=== PATIENT | male | born 1950 | race Caucasian/White ===

== ENCOUNTER 2020-02-22 22:09 | Inpatient (IN) ==
[2020-02-22 22:19] VITALS: BMI 31.8
[2020-02-22 23:12] LABS: ABG BASE EXCESS 4.3 mmol/L (-2.0-2.0); ABG HCO3 26.2 mmol/L (22-26)
[2020-02-22 23:13] LABS: ABG ALLEN TEST POS
[2020-02-22 23:18] LABS: BASOPHILS % (AUTO) 0.1 % (0.2-1.0); EOSINOPHILS % (AUTO) 0.2 % (0.9-2.9); HEMATOCRIT 45.6 % (42.0-54.0); HEMOGLOBIN 15.4 g/dL (13.5-18.0); LYMPHOCYTES # (AUTO) 0.9 X10^3/uL (1.3-2.9); LYMPHOCYTES % (AUTO) 6.9 % (21.0-51.0); MEAN CORPUSCULAR HEMOGLOBIN 29.3 pg (27.0-34.0); MEAN CORPUSCULAR HGB CONC 33.7 g/dL (33.0-35.0); MEAN CORPUSCULAR VOLUME 86.9 fL (80.0-100.0); MEAN PLATELET VOLUME 8.6 fL (7.4-11.0); MONOCYTES # (AUTO) 1.5 x10^3/uL (0.3-0.8); MONOCYTES % (AUTO) 11.7 % (0.0-13.0); NEUTROPHILS # (AUTO) 10.2 x10^3/uL (2.2-4.8); NEUTROPHILS % (AUTO) 81.1 % (42.0-75.0); PLATELET COUNT 342 X10^3/uL (150.0-450.0); RED BLOOD COUNT 5.25 X10^6/uL (4.7-6.0); WHITE BLOOD COUNT 12.5 X10^3/uL (3.6-10.0)
[2020-02-22 23:26] LABS: ALBUMIN 2.7 g/dL (3.4-5.0); CALCIUM 8.9 mg/dL (8.5-10.1); CARBON DIOXIDE 26.2 mmol/L (21-32); COR CA(FOR HYPOALB) 9.9 mg/dL (8.5-10.1); CREATININE 1.64 mg/dL (0.70-1.30); TOTAL PROTEIN 7.6 g/dL (6.4-8.2)
--- NOTE | 2020-02-22 23:29 | RAD ---
HISTORYSOB, LOW [id number], 1 VIEWCOMPARISONNoneFINDINGSThe trachea is midline. The cardiac silhouette is borderline prominent.. Low lung volume with patchy bibasilar airspace opacities, concerning for infiltrate/pneumonia. Perihilar interstitial opacities could represent interstitial edema or infiltrates. No pneumothorax. Possible bilateral pleural effusions.. Moderate multilevel spondylosis.IMPRESSIONLow lung volume with mild bibasilar patchy airspace opacities, concerning for infiltrate/pneumonia. Follow-up is recommended.Perihilar interstitial edema versus infiltrates.Possible bilateral pleural effusions.Electronically signed by: Alem Verduzco (Feb 22, 2020 23:27:30)
--- NOTE | 2020-02-23 00:56 | DR.GENAD ---
HPI Time Seen Time Seen by Provider: 02/23/20 00:03 PCP Primary Care Physician: LEIGHA Complaint/Symptoms Chief Complaint:: STARTED HAVING COVID SYMPTOMS OF FEVER, FATIGUE, WEAKNESS AND O2 SATS DROPPING TO 87-88% AT REST. STATES HE HAS SOME SOB WITH EXERTION AND AMS SINCE BEING SICK. Self Treatment fo Chief Complaint: WAS SWABBED FOR COVID AT DR. AHUJA'S OFFICE THIS PAST MONDAY BUT HAVE NOT RECEIVED THE RESULTS BACK YET. Source History Provided: Patient and Significant Other Mode of Arrival Mode of Arrival: Ambulatory Timing Onset of Chief Complaint: 02/10/20 PMH PMH Past Medical History: Yes Past Medical History: Arthritis, Diabetes, Dyslipidemia, GERD, Gout, Hyper tension, Kidney Stones and Sleep Apnea Past Surgical History: Yes Past Surgical History Comment: CERVICAL FUSION Family History History of Family Medical Conditions: Yes Family Medical History: Diabetes Mellitus, Cancer, [place] and Hypertension Social History Does patient currently use any type of tobacco product: No Have you used tobacco products in the last 12 months: No Type of Tobacco Use: None Does any household member use tobacco: No Alcohol Use: None Do you use any recreational Drugs:: No Lives With: Spouse Lives Where: Home Infectious screening In the last 2 months have you had wt loss of >10#?: NO Have you had fever, night sweats or hemotysis?: No Have you traveled outside the country in the last 6 months?: No Isolation: Droplet PE Vital Signs Vitals: Temperature 98.8 F Pulse Rate 96 Respiratory Rate 20 Blood Pressure 136/69 O2 Sat by Pulse Oximetry 91 ROR Labs Reviewed Result Diagrams: 02/22/20 23:07 02/22/20 23:07 Laboratory: WBC 12.5 X10^3/uL (3.6-10.0) H 02/22/20 23:07 RBC 5.25 X10^6/uL (4.7-6.0) 02/22/20 23:07 Hgb 15.4 g/dL (13.5-18.0) 02/22/20 23:07 Hct 45.6 % (42.0-54.0) 02/22/20 23:07 MCV 86.9 fL (80.0-100.0) 02/22/20 23:07 MCH 29.3 pg (27.0-34.0) 02/22/20 23:07 MCHC 33.7 g/dL (33.0-35.0) 02/22/20 23:07 RDW 15.0 % (11.6-16.5) 02/22/20 23:07 Plt Count 342 X10^3/uL (150.0-450.0) 02/22/20 23:07 MPV 8.6 fL (7.4-11.0) 02/22/20 23:07 Neut % (Auto) 81.1 % (42.0-75.0) H 02/22/20 23:07 Lymph % (Auto) 6.9 % (21.0-51.0) L 02/22/20 23:07 [place] % (Auto) 11.7 % (0.0-13.0) 02/22/20 23:07 Eos % (Auto) 0.2 % (0.9-2.9) L 02/22/20 23:07 Baso % (Auto) 0.1 % (0.2-1.0) L 02/22/20 23:07 Neut # (Auto) 10.2 x10^3/uL (2.2-4.8) H 02/22/20 23:07 Lymph # (Auto) 0.9 X10^3/uL (1.3-2.9) L 02/22/20 23:07 [place] # (Auto) 1.5 x10^3/uL (0.3-0.8) H 02/22/20 23:07 Eos # (Auto) 0.0 x10^3/uL (0.0-0.2) 02/22/20 23:07 Baso # (Auto) 0.0 X10^3/uL (0.0-0.1) 02/22/20 23:07 Absolute Nucleated RBC 0.1 /100WBC 02/22/20 23:07 Sample Site Lr 02/22/20 23:05 ABG pH 7.550 (7.35-7.45) H 02/22/20 23:05 ABG pCO2 30.0 mmHg (35.0-45.0) L 02/22/20 23:05 ABG pO2 51.0 mmHg (80.0-100.0) L 02/22/20 23:05 ABG HCO3 26.2 mmol/L (22-26) H 02/22/20 23:05 ABG O2 Saturation 90.0 % (90-100) 02/22/20 23:05 ABG Base Excess 4.3 mmol/L (-2.0-2.0) H 02/22/20 23:05 Cristóbal Test Pos 02/22/20 23:05 A-a Gradient 61.0 mmHg 02/22/20 23:05 FiO2 21.0 02/22/20 23:05 Blood Gas Comments Jack well ae 02/22/20 23:05 Sodium 135 mmol/L (136-145) L 02/22/20 23:07 Corrected Sodium 137 mmol/L (136-145) 02/22/20 23:07 Potassium 3.4 mmol/L (3.5-5.1) L 02/22/20 23:07 Chloride 98 mmol/L (98-107) 02/22/20 23:07 Carbon Dioxide 26.2 mmol/L (21-32) 02/22/20 23:07 BUN 23 mg/dL (7-18) H 02/22/20 23:07 Creatinine 1.64 mg/dL (0.70-1.30) H 02/22/20 23:07 Est GFR (MDRD) Af Amer 54 (>60) L 02/22/20 23:07 Est GFR (MDRD) Non-Af 44 (>60) L 02/22/20 23:07 Glucose 185 mg/dL (65-99) H 02/22/20 23:07 Calcium 8.9 mg/dL (8.5-10.1) 02/22/20 23:07 Corrected Calcium 9.9 mg/dL (8.5-10.1) 02/22/20 23:07 Ferritin 1306 ng/mL (26-388) H 02/22/20 23:07 Total Bilirubin 1.00 mg/dL (0.2-1.0) 02/22/20 23:07 AST 65 Units/L (15-37) H 02/22/20 23:07 ALT 80 Units/L (12-78) H 02/22/20 23:07 Alkaline Phosphatase 65 Units/L (46-116) 02/22/20 23:07 C-Reactive Protein 122.90 mg/L (0-3.0) H 02/22/20 23:07 Total Protein 7.6 g/dL (6.4-8.2) 02/22/20 23:07 Albumin 2.7 g/dL (3.4-5.0) L 02/22/20 23:07 Globulin 4.9 g/dL (2.5-4.5) H 02/22/20 23:07 Albumin/Globulin Ratio 0.6 Ratio (1.1-2.1) L 02/22/20 23:07 SARS CoV-2 RNA Rapid ROSALIA Positive (NEGATIVE) A 02/23/20 01:14 Opioid Opioid Risk Tool Total: 0 Total Score Risk Category: Low Risk Copyright: Storm COKER predicting aberrant behaviors Diagnosis Discharge Problem: Hypoxia, Acute respiratory alkalosis, Pneumonia due to 2019 novel coronavirus Instructions Forms: Precautions for COVID19 Patient Portal Social Distancing
[2020-02-23] MEDS ORDERED: NS 1000 ML 1,000 ML ONE ×2 (01:52→14:05)
--- NOTE | 2020-02-23 01:59 | DR.GENAD ---
HPI Time Seen Time Seen by Provider: 02/23/20 00:03 PCP Primary Care Physician: LEIGHA HPI Comment HPI Comment: According to pt he did have shortness of breath cough and fatigue. has seen his FP last week. did have covid test result of which are pending ,has noticed shortness of breath has worsened .hence the visit Complaint/Symptoms Chief Complaint Doctors Comments: shortness of breath Chief Complaint:: STARTED HAVING COVID SYMPTOMS OF FEVER, FATIGUE, WEAKNESS AND O2 SATS DROPPING TO 87-88% AT REST. STATES HE HAS SOME SOB WITH EXERTION AND AMS SINCE BEING SICK. Self Treatment fo Chief Complaint: WAS SWABBED FOR COVID AT DR. AHUJA'S OFFICE THIS PAST MONDAY BUT HAVE NOT RECEIVED THE RESULTS BACK YET. COVID-19 Coronavirus risk:travel/contact w/high risk person: Yes Has patient experienced Coronavirus symptoms: Yes Coronavirus symptoms experienced: Fever, Coughing and Shortness of Breath Nurses notes reviewed Nurses Notes Review: Yes Source History Provided: Patient and Significant Other Mode of Arrival Mode of Arrival: Ambulatory Timing Onset of Chief Complaint: 02/10/20 Came on: Gradually Duration Duration: Constant How lon Duration: Days Severity Severity: Moderate Modifying Factors Worsens:: on exertion PMH PMH Past Medical History: Yes Past Medical History: Arthritis, Diabetes, Dyslipidemia, GERD, Gout, Hypertension, Kidney Stones and Sleep Apnea Past Surgical History: Yes Past Surgical History Comment: CERVICAL FUSION Family History History of Family Medical Conditions: Yes Family Medical History: Diabetes Mellitus, Cancer, [place] and Hypertension Social History Does patient currently use any type of tobacco product: No Have you used tobacco products in the last 12 months: No Type of Tobacco Use: None Does any household member use tobacco: No Alcohol Use: None Do you use any recreational Drugs:: No Lives With: Spouse Lives Where: Home Infectious screening In the last 2 months have you had wt loss of >10#?: NO Have you had fever, night sweats or hemotysis?: No Have you traveled outside the country in the last 6 months?: No Isolation: Droplet ROS Review of Systems Constitutional: Chills, Fever, Malaise and Fatigue Eyes: No Symptoms Reported ENTM: No Symptoms Reported Respiratoy: Dry Cough and Short of Breath Cardiovascular: No Symptoms Reported Gastrointestinal/Abdominal: No Symptoms Reported Genitourinary: No Symptoms Reported Neurological: No Symptoms Reported and Weakness Musculoskeletal: No Symptoms Reported Integumentary: No Symptoms Reported Hematologic/Lymphatic: No Symptoms Reported Endocrine: No Symptoms Reported Psychiatric: No Symptoms Reported PE Vital Signs Vitals: Temperature 98.8 F Pulse Rate 96 Respiratory Rate 20 Blood Pressure 136/69 O2 Sat by Pulse Oximetry 91 General Limitations: No Limitations General Appearance: Alert and Anxious Head Head Exam: Normal Inspection, Atraumatic and Normocephalic Eyes Eye exam: Normal Appearance, PERRL and EOMI ENT ENT Exam: Mucous Membranes Dry Neck Neck Exam: Normal Inspection and Full ROM Respiratory Respiratory Exam: Bilateral: Crackles Cardiovascular Cardiovascular Exam: Normal Rhythm, Normal Heart Sounds, +S1 and +S2 Abdominal Exam Abdominal Exam: Normal Inspection, Normal Bowel Sounds and Soft Extremities Extremities Exam: Full ROM Neurologic Neurological Exam: Alert and Oriented X3 Skin Skin Exam: Warm MDM Additional Information Additional Information Obtained From: Old Records Differential Diagnosis Differential Diagnosis: viral syndrome,shortness of breath,hypoxia COURSE Treatment Treatment: oxygen ROR Labs Reviewed Laboratory Results Reviewed?: Yes Result Diagrams: 02/22/20 23:07 02/22/20 23:07 Laboratory: WBC 12.5 X10^3/uL (3.6-10.0) H 02/22/20 23:07 RBC 5.25 X10^6/uL (4.7-6.0) 02/22/20 23:07 Hgb 15.4 g/dL (13.5-18.0) 02/22/20 23:07 Hct 45.6 % (42.0-54.0) 02/22/20 23:07 MCV 86.9 fL (80.0-100.0) 02/22/20 23:07 MCH 29.3 pg (27.0-34.0) 02/22/20 23:07 MCHC 33.7 g/dL (33.0-35.0) 02/22/20 23:07 RDW 15.0 % (11.6-16.5) 02/22/20 23:07 Plt Count 342 X10^3/uL (150.0-450.0) 02/22/20 23:07 MPV 8.6 fL (7.4-11.0) 02/22/20 23:07 Neut % (Auto) 81.1 % (42.0-75.0) H 02/22/20 23:07 Lymph % (Auto) 6.9 % (21.0-51.0) L 02/22/20 23:07 [place] % (Auto) 11.7 % (0.0-13.0) 02/22/20 23:07 Eos % (Auto) 0.2 % (0.9-2.9) L 02/22/20 23:07 Baso % (Auto) 0.1 % (0.2-1.0) L 02/22/20 23:07 Neut # (Auto) 10.2 x10^3/uL (2.2-4.8) H 02/22/20 23:07 Lymph # (Auto) 0.9 X10^3/uL (1.3-2.9) L 02/22/20 23:07 [place] # (Auto) 1.5 x10^3/uL (0.3-0.8) H 02/22/20 23:07 Eos # (Auto) 0.0 x10^3/uL (0.0-0.2) 02/22/20 23:07 Baso # (Auto) 0.0 X10^3/uL (0.0-0.1) 02/22/20 23:07 Absolute Nucleated RBC 0.1 /100WBC 02/22/20 23:07 Sample Site Lr 02/22/20 23:05 ABG pH 7.550 (7.35-7.45) H 02/22/20 23:05 ABG pCO2 30.0 mmHg (35.0-45.0) L 02/22/20 23:05 ABG pO2 51.0 mmHg (80.0-100.0) L 02/22/20 23:05 ABG HCO3 26.2 mmol/L (22-26) H 02/22/20 23:05 ABG O2 Saturation 90.0 % (90-100) 02/22/20 23:05 ABG Base Excess 4.3 mmol/L (-2.0-2.0) H 02/22/20 23:05 Cristóbal Test Pos 02/22/20 23:05 A-a Gradient 61.0 mmHg 02/22/20 23:05 FiO2 21.0 02/22/20 23:05 Blood Gas Comments Jack well ae 02/22/20 23:05 Sodium 135 mmol/L (136-145) L 02/22/20 23:07 Corrected Sodium 137 mmol/L (136-145) 02/22/20 23:07 Potassium 3.4 mmol/L (3.5-5.1) L 02/22/20 23:07 Chloride 98 mmol/L (98-107) 02/22/20 23:07 Carbon Dioxide 26.2 mmol/L (21-32) 02/22/20 23:07 BUN 23 mg/dL (7-18) H 02/22/20 23:07 Creatinine 1.64 mg/dL (0.70-1.30) H 02/22/20 23:07 Est GFR (MDRD) Af Amer 54 (>60) L 02/22/20 23:07 Est GFR (MDRD) Non-Af 44 (>60) L 02/22/20 23:07 Glucose 185 mg/dL (65-99) H 02/22/20 23:07 Calcium 8.9 mg/dL (8.5-10.1) 02/22/20 23:07 Corrected Calcium 9.9 mg/dL (8.5-10.1) 02/22/20 23:07 Ferritin 1306 ng/mL (26-388) H 02/22/20 23:07 Total Bilirubin 1.00 mg/dL (0.2-1.0) 02/22/20 23:07 AST 65 Units/L (15-37) H 02/22/20 23:07 ALT 80 Units/L (12-78) H 02/22/20 23:07 Alkaline Phosphatase 65 Units/L (46-116) 02/22/20 23:07 C-Reactive Protein 122.90 mg/L (0-3.0) H 02/22/20 23:07 Total Protein 7.6 g/dL (6.4-8.2) 02/22/20 23:07 Albumin 2.7 g/dL (3.4-5.0) L 02/22/20 23:07 Globulin 4.9 g/dL (2.5-4.5) H 02/22/20 23:07 Albumin/Globulin Ratio 0.6 Ratio (1.1-2.1) L 02/22/20 23:07 SARS CoV-2 RNA Rapid ROSALIA Positive (NEGATIVE) A 02/23/20 01:14 XRAY XRAY Interpreted by: Radiologist Opioid Opioid Risk Tool Total: 0 Total Score Risk Category: Low Risk Copyright: Storm COKER predicting aberrant behaviors Diagnosis Discharge Problem: Hypoxia, Acute respiratory alkalosis, Pneumonia due to 2019 novel coronavirus
[2020-02-23] MEDS ORDERED: NS 1000 ML 1,000 ML IV SCH (03:00)
[2020-02-23] MEDS ORDERED: REMDESIVIR 200 MG in NS 250 ML IV 250 ML IV ONE (03:07)
[2020-02-23] MEDS: DECADRON TAB PO SCH (03:49)
[2020-02-23] MEDS ORDERED: NS 100 ML IV 100 ML IV ONE ×3 (04:19→14:08)
[2020-02-23] MEDS: ASCORBIC ACID INJ MULTI-DOSE VIAL 1,500 MG in NS 100 ML IV 100 ML IV SCH ×4 (04:38→21:00)
[2020-02-23] MEDS ORDERED: REMDESIVIR IV ONE (05:21)
[2020-02-23] MEDS ORDERED: NS 250 ML IV 250 ML IV ONE (05:21)
[2020-02-23] MEDS: NS 1000 ML 1,000 ML IV SCH ×2 (06:09→14:12)
[2020-02-23 06:19] LABS: BASOPHILS % (AUTO) 0.4 % (0.2-1.0); HEMATOCRIT 42.6 % (42.0-54.0); HEMOGLOBIN 14.7 g/dL (13.5-18.0); LYMPHOCYTES # (AUTO) 1.1 X10^3/uL (1.3-2.9); LYMPHOCYTES % (AUTO) 10.6 % (21.0-51.0); MEAN CORPUSCULAR HEMOGLOBIN 29.9 pg (27.0-34.0); MEAN CORPUSCULAR HGB CONC 34.4 g/dL (33.0-35.0); MEAN CORPUSCULAR VOLUME 86.8 fL (80.0-100.0); MEAN PLATELET VOLUME 8.8 fL (7.4-11.0); MONOCYTES # (AUTO) 1.1 x10^3/uL (0.3-0.8); MONOCYTES % (AUTO) 10.7 % (0.0-13.0); NEUTROPHILS # (AUTO) 7.8 x10^3/uL (2.2-4.8); NEUTROPHILS % (AUTO) 78.3 % (42.0-75.0); PLATELET COUNT 325 X10^3/uL (150.0-450.0); RED BLOOD COUNT 4.91 X10^6/uL (4.7-6.0); RED CELL DISTRIBUTION WIDTH 14.9 % (11.6-16.5)
[2020-02-23 06:29] LABS: ALANINE AMINOTRANSFERASE 75 Units/L (12-78); ALBUMIN 2.5 g/dL (3.4-5.0); ALKALINE PHOSPHATASE 60 Units/L (46-116); ASPARTATE AMINO TRANSFERASE 60 Units/L (15-37); BLOOD UREA NITROGEN 22 mg/dL (7-18); CALCIUM 8.6 mg/dL (8.5-10.1); CARBON DIOXIDE 25.6 mmol/L (21-32); CHLORIDE 102 mmol/L (98-107); COR CA(FOR HYPOALB) 9.8 mg/dL (8.5-10.1); COR NA(FOR HYPERGLY) 139 mmol/L (136-145); CREATININE 1.44 mg/dL (0.70-1.30); SODIUM 138 mmol/L (136-145); TOTAL PROTEIN 7.2 g/dL (6.4-8.2); eGFR NON BLACK RACES 51 (>60)
[2020-02-23] MEDS ORDERED: PULMICORT NEB TX 0.5 MG NEB ONE (07:43)
[2020-02-23] MEDS ORDERED: PROVENTIL NEB TX 0.083% 2.5MG/ 3ML ONE (07:43)
[2020-02-23] MEDS: PULMICORT NEB TX 0.5 MG NEB SCH ×2 (08:30→20:55)
[2020-02-23] MEDS: PROVENTIL NEB TX 0.083% 2.5MG/ 3ML NEB SCH ×2 (08:30→20:55)
[2020-02-23] MEDS ORDERED: PEPCID TAB 40 MG ONE (08:43)
[2020-02-23] MEDS ORDERED: LOVENOX INJ 30 MG SYR SC ONE (08:43)
[2020-02-23] MEDS ORDERED: THIAMINE HCL INJ ONE (08:43)
[2020-02-23] MEDS ORDERED: ZINC SULFATE ONE (08:43)
[2020-02-23] MEDS ORDERED: ASCORBIC ACID INJ MULTI-DOSE VIAL IV ONE ×2 (08:44→14:06)
[2020-02-23] MEDS: ZINC SULFATE PO SCH ×2 (08:50→21:00)
[2020-02-23] MEDS: THIAMINE HCL INJ IVP SCH ×2 (08:50→21:00)
[2020-02-23] MEDS: VITAMIN A PO SCH (08:51)
[2020-02-23] MEDS: VITAMIN D3 125 mcg (5,000 UNITS) PO SCH (08:52)
[2020-02-23] MEDS ORDERED: PEPCID TAB 40 MG PO SCH (09:00)
[2020-02-23] MEDS: LOVENOX INJ 30 MG SYR SC SCH ×2 (09:38→21:00)
[2020-02-23] MEDS ORDERED: ZITHROMAX TAB 250 MG PO ONE ×2 (09:40→10:03)
[2020-02-23] MEDS ORDERED: K-DUR TAB 20 MEQ PO ONE (10:03)
[2020-02-23] MEDS: K-DUR TAB 20 MEQ PO SCH ×3 (10:08→21:00)
[2020-02-23] MEDS: ZITHROMAX TAB 250 MG PO SCH (10:09)
--- NOTE | 2020-02-23 12:21 | DR.H&P ---
H&P History & Physical for Day of: H&P Date: 02/23/20 Chief Complaint Chief Complaint: weakness, worsening dyspnea Allergies Allergies Allergy/AdvReac Type Severity Reaction Status Date / Time No Known Drug Allergies Allergy Verified 02/22/20 22:19 History of Present Illness History of Present Illness: Mr. Naqvi is a 69y/o male with a PMH of HTN, HLD and DM presented with worsening dyspnea, cough and weakness. He states he has been sick for the past week. He got tested for covid at his PCP's office on but did not get the results back yet. He reports increased shortness of breath and cough. He also started having diarrhea last night. ED work-up COVID-19 positive CXR: mild bibasilar patchy infiltrates, bilateral effusions noted ABG 7.55/30/51/26 sats 90% on RA Labs: WBC 10 Hgb 14.7 Na: 139 K: 3.3 Cr: 1.44 down from 1.64 Patient is currently on 3L NC, sats above 90%. Plan: Continue to monitor resp status closely, Wean O2 as needed to keep sats > 92% . Continue decadron and Remdesivir. Will add azithromycin. Continue lovenox. Aggressive pulmonary toilet with bronchodilators and IS. Continue vitamin support. Change hydration to NS at 50cc/hr. Replace potassium. Monitor AM labs, imaging. Resume Home medications. Hold nephrotoxic medication. Time spent for clinical assessment, physical examination, reviewing labs/imaging , medical decision making and documentation greater than 45 mins. Past Medical History Past Medical History: Arthritis, Diabetes, Dyslipidemia, GERD, Gout, Hypertension, Kidney Stones and Sleep Apnea Family History Family Medical History: Diabetes Mellitus, Cancer, [place] and Hypertension Social History Does patient currently use any type of tobacco product: No Have you used tobacco products in the last 12 months: No Type of Tobacco Use: None Does any household member use tobacco: No Alcohol Use: None Drug Use: None Medications Home Medications: No Known Drug Allergies Allergy (Verified 02/22/20 22:19) Labs Result Diagrams: 02/23/20 05:53 02/23/20 05:53 Labs: Laboratory WBC 10.0 X10^3/uL (3.6-10.0) 02/23/20 05:53 RBC 4.91 X10^6/uL (4.7-6.0) 02/23/20 05:53 Hgb 14.7 g/dL (13.5-18.0) 02/23/20 05:53 Hct 42.6 % (42.0-54.0) 02/23/20 05:53 MCV 86.8 fL (80.0-100.0) 02/23/20 05:53 MCH 29.9 pg (27.0-34.0) 02/23/20 05:53 MCHC 34.4 g/dL (33.0-35.0) 02/23/20 05:53 RDW 14.9 % (11.6-16.5) 02/23/20 05:53 Plt Count 325 X10^3/uL (150.0-450.0) 02/23/20 05:53 MPV 8.8 fL (7.4-11.0) 02/23/20 05:53 Neut % (Auto) 78.3 % (42.0-75.0) H 02/23/20 05:53 Lymph % (Auto) 10.6 % (21.0-51.0) L 02/23/20 05:53 [place] % (Auto) 10.7 % (0.0-13.0) 02/23/20 05:53 Eos % (Auto) 0.0 % (0.9-2.9) L 02/23/20 05:53 Baso % (Auto) 0.4 % (0.2-1.0) 02/23/20 05:53 Neut # (Auto) 7.8 x10^3/uL (2.2-4.8) H 02/23/20 05:53 Lymph # (Auto) 1.1 X10^3/uL (1.3-2.9) L 02/23/20 05:53 [place] # (Auto) 1.1 x10^3/uL (0.3-0.8) H 02/23/20 05:53 Eos # (Auto) 0.0 x10^3/uL (0.0-0.2) 02/23/20 05:53 Baso # (Auto) 0.0 X10^3/uL (0.0-0.1) 02/23/20 05:53 Absolute Nucleated RBC 0.5 /100WBC 02/23/20 05:53 Sample Site Lr 02/22/20 23:05 ABG pH 7.550 (7.35-7.45) H 02/22/20 23:05 ABG pCO2 30.0 mmHg (35.0-45.0) L 02/22/20 23:05 ABG pO2 51.0 mmHg (80.0-100.0) L 02/22/20 23:05 ABG HCO3 26.2 mmol/L (22-26) H 02/22/20 23:05 ABG O2 Saturation 90.0 % (90-100) 02/22/20 23:05 ABG Base Excess 4.3 mmol/L (-2.0-2.0) H 02/22/20 23:05 Cristóbal Test Pos 02/22/20 23:05 A-a Gradient 61.0 mmHg 02/22/20 23:05 FiO2 21.0 02/22/20 23:05 Blood Gas Comments Jack well ae 02/22/20 23:05 Sodium 138 mmol/L (136-145) 02/23/20 05:53 Corrected Sodium 139 mmol/L (136-145) 02/23/20 05:53 Potassium 3.3 mmol/L (3.5-5.1) L 02/23/20 05:53 Chloride 102 mmol/L (98-107) 02/23/20 05:53 Carbon Dioxide 25.6 mmol/L (21-32) 02/23/20 05:53 BUN 22 mg/dL (7-18) H 02/23/20 05:53 Creatinine 1.44 mg/dL (0.70-1.30) H 02/23/20 05:53 Est GFR (MDRD) Af Amer > 60 (>60) 02/23/20 05:53 Est GFR (MDRD) Non-Af 51 (>60) L 02/23/20 05:53 Glucose 145 mg/dL (65-99) H 02/23/20 05:53 POC Glucose (mg/dL) 138 mg/dL (65-99) H 02/23/20 05:53 Calcium 8.6 mg/dL (8.5-10.1) 02/23/20 05:53 Corrected Calcium 9.8 mg/dL (8.5-10.1) 02/23/20 05:53 Magnesium 2.0 mg/dL (1.7-2.9) 02/23/20 05:53 Ferritin 1306 ng/mL (26-388) H 02/22/20 23:07 Total Bilirubin 0.70 mg/dL (0.2-1.0) 02/23/20 05:53 AST 60 Units/L (15-37) H 02/23/20 05:53 ALT 75 Units/L (12-78) 02/23/20 05:53 Alkaline Phosphatase 60 Units/L (46-116) 02/23/20 05:53 C-Reactive Protein 122.90 mg/L (0-3.0) H 02/22/20 23:07 Total Protein 7.2 g/dL (6.4-8.2) 02/23/20 05:53 Albumin 2.5 g/dL (3.4-5.0) L 02/23/20 05:53 Globulin 4.7 g/dL (2.5-4.5) H 02/23/20 05:53 Albumin/Globulin Ratio 0.5 Ratio (1.1-2.1) L 02/23/20 05:53 SARS CoV-2 RNA Rapid ROSALIA Positive (NEGATIVE) A 02/23/20 01:14 Review of Systems Constitutional: Fever, Weakness and Malaise Eyes: No Symptoms Reported ENT: No Symptoms Reported Respiratory: Cough, Shortness of Breath and SOB with Excertion Cardiovascular: No Symptoms Reported Gastrointestinal: Diarrhea Genitourinary: No Symptoms Reported Musculoskeletal: Back Pain Skin: No Symptoms Reported Neurological: No Symptoms Reported Physical Exam Vital Signs: Temperature 97.9 F Pulse Rate [Bilateral Radial] 77 Pulse Rate 54 Respiratory Rate 22 Blood Pressure [Right Arm] 143/71 Blood Pressure 136/69 O2 Sat by Pulse Oximetry 97 Oriented: Normal Eyes: Normal Ear: Normal Throat: Normal Respiratory: Diminished Throughout Cardiovascular: Normal Auscultation: Bowel Sounds: Normal Palpation: Normal Tenderness: Normal Skin: Decreased Turgur Musculoskeletal: Back:Lumbar and Back:Paraspinous Psychiatric: Anxiety Mood Description: Anxious Affect: Anxious Speech Pattern: Clear and Appropriate Assessment/Plan (1) Pneumonia due to 2019 novel coronavirus: Status: Acute (2) Acute respiratory failure with hypoxia: Status: Acute (3) Hypokalemia: Status: Acute (4) Diabetes: Qualifiers: Diabetes mellitus complication status: without complication Diabetes mellitus long term care social worker insulin use: without long term care social worker use Diabetes mellitus type: type 2 Qualified Code(s): E11.9 - Type 2 diabetes mellitus without comp lications Status: Acute (5) HTN (hypertension): Qualifiers: Hypertension type: essential hypertension Qualified Code(s): I10 - Essential (primary) hypertension Status: Acute (6) STELLA (acute kidney injury): Status: Acute (7) GERD (gastroesophageal reflux disease): Qualifiers: Esophagitis presence: without esophagitis Qualified Code(s): K21.9 - G madhavi-esophageal reflux disease without esophagitis Status: Acute (8) HLD (hyperlipidemia): Qualifiers: Hyperlipidemia type: unspecified Qualified Code(s): E78.5 - Hyperlipidemia, unspecified Status: Acute Review H&P Reviewed: Yes Patient was examined?: Yes
[2020-02-23] MEDS ORDERED: ULTRAM PO PRN (12:29)
[2020-02-23] MEDS ORDERED: ASPIRIN 81 MG CHEWTAB ONE (13:37)
[2020-02-23] MEDS ORDERED: LIPITOR TAB 80 MG ONE (13:37)
[2020-02-23] MEDS: ASPIRIN 81 MG CHEWTAB PO SCH (13:38)
[2020-02-23] MEDS: LIPITOR TAB 20 MG PO SCH ×2 (13:38→13:53)
[2020-02-23] MEDS ORDERED: ULTRAM ONE (14:17)
[2020-02-23] MEDS ORDERED: HumuLIN R ONE (17:26)
[2020-02-23] MEDS: HumuLIN R SC PRN ×2 (17:39→21:00)
[2020-02-24] MEDS: ASCORBIC ACID INJ MULTI-DOSE VIAL 1,500 MG in NS 100 ML IV 100 ML IV SCH ×4 (03:55→22:00)
[2020-02-24] MEDS: NS 1000 ML 1,000 ML IV SCH (04:37)
[2020-02-24 07:05] LABS: BASOPHILS % (AUTO) 0.5 % (0.2-1.0); EOSINOPHILS % (AUTO) 0.5 % (0.9-2.9); HEMATOCRIT 40.8 % (42.0-54.0); HEMOGLOBIN 13.7 g/dL (13.5-18.0); LYMPHOCYTES # (AUTO) 1.6 X10^3/uL (1.3-2.9); MEAN CORPUSCULAR HEMOGLOBIN 29.7 pg (27.0-34.0); MEAN CORPUSCULAR HGB CONC 33.7 g/dL (33.0-35.0); MEAN CORPUSCULAR VOLUME 88.3 fL (80.0-100.0); MONOCYTES # (AUTO) 0.9 x10^3/uL (0.3-0.8); MONOCYTES % (AUTO) 11.7 % (0.0-13.0); NEUTROPHILS # (AUTO) 5.1 x10^3/uL (2.2-4.8); NEUTROPHILS % (AUTO) 66.3 % (42.0-75.0); PLATELET COUNT 308 X10^3/uL (150.0-450.0); RED BLOOD COUNT 4.62 X10^6/uL (4.7-6.0); WHITE BLOOD COUNT 7.6 X10^3/uL (3.6-10.0)
[2020-02-24 07:27] LABS: ALANINE AMINOTRANSFERASE 133 Units/L (12-78); ALBUMIN 2.2 g/dL (3.4-5.0); ALKALINE PHOSPHATASE 55 Units/L (46-116); ASPARTATE AMINO TRANSFERASE 82 Units/L (15-37); BLOOD UREA NITROGEN 23 mg/dL (7-18); CALCIUM 8.5 mg/dL (8.5-10.1); CARBON DIOXIDE 23.5 mmol/L (21-32); CHLORIDE 109 mmol/L (98-107); COR CA(FOR HYPOALB) 9.9 mg/dL (8.5-10.1); COR NA(FOR HYPERGLY) 143 mmol/L (136-145); CREATININE 1.27 mg/dL (0.70-1.30); SODIUM 143 mmol/L (136-145); TOTAL PROTEIN 6.3 g/dL (6.4-8.2); eGFR NON BLACK RACES 59 (>60)
[2020-02-24] MEDS: VITAMIN D3 125 mcg (5,000 UNITS) PO SCH (10:00)
[2020-02-24] MEDS: THIAMINE HCL INJ IVP SCH ×2 (10:00→22:21)
[2020-02-24] MEDS: REMDESIVIR 100 MG in NS 250 ML IV 250 ML IV SCH (10:00)
[2020-02-24] MEDS: DECADRON TAB PO SCH (10:00)
[2020-02-24] MEDS: PROTONIX TAB 40 MG PO SCH (10:00)
[2020-02-24] MEDS: ZINC SULFATE PO SCH ×2 (10:00→22:00)
[2020-02-24] MEDS: ZITHROMAX TAB 250 MG PO SCH (10:00)
[2020-02-24] MEDS: VITAMIN A PO SCH (10:00)
[2020-02-24] MEDS: LIPITOR TAB 20 MG PO SCH (10:00)
[2020-02-24] MEDS: ASPIRIN 81 MG CHEWTAB PO SCH (10:00)
[2020-02-24] MEDS: K-DUR TAB 20 MEQ PO SCH ×2 (10:15→22:18)
[2020-02-24] MEDS: LOVENOX INJ 30 MG SYR SC SCH ×2 (10:16→22:19)
--- NOTE | 2020-02-24 10:24 | PCM.PROG ---
Progress Note Progress Note for Day of Date of Exam: 02/24/20 Subjective Subjective: Patient seen at bedside, no overnight events noted. He states he feels better this morning. He has been coughing up mucus. He is currently on 2- 3L O2 via NC. Denies fever or chills. Denies GI Sx. Labs: WBC 7.6 BUN/Cr: 23/1.27 Glu 117 Plan: continue to wean O2 as tolerated to keep sats > 92%. Aggressive pulmonary toilet with IS and bronchodilators. Continue current treatment with antibiotics, decadron and Remdesivir. Continue vitamin support. Continue home medications. Monitor AM labs, ABG and imaging. Past Medical Family Social History Past Med/Fam/Surg Hx: No changes since H&P Allergies: Allergies No Known Drug Allergies Allergy (Verified 02/22/20 22:19) Review of Systems ROS: No change since H&P Vital Signs and I&O's Vital Signs: Temperature 97.5 F Pulse Rate [Bilateral Radial] 70 Pulse Rate 62 Respiratory Rate 20 Blood Pressure [Right Arm] 124/82 Blood Pressure 136/69 O2 Sat by Pulse Oximetry 98 Intake and Output: Intake & Output 02/21/20 02/22/20 02/23/20 02/24/20 23:59 23:59 23:59 23:59 Intake Total 3328 / 3328 628 / 628 Output Total 240 / 240 250 / 250 Balance 3088 / 3088 378 / 378 Physical Exam Oriented: Normal Eyes: Normal Ear: Normal Throat: Normal Respiratory: Generalized, Diminished and Rhonchi Cardiovascular: Normal Auscultation: Bowel Sounds: Normal Tenderness: Normal Skin: Decreased Turgur Musculoskeletal: Back:Lumbar and Back:Paraspinous Psychiatric: Normal Mood Description: Calm Affect: Normal Speech Pattern: Clear and Appropriate Laboratory and Diagnostics Result Diagrams: 02/24/20 05:33 02/24/20 05:33 Labs: Laboratory WBC 7.6 X10^3/uL (3.6-10.0) 02/24/20 05:33 RBC 4.62 X10^6/uL (4.7-6.0) L 02/24/20 05:33 Hgb 13.7 g/dL (13.5-18.0) 02/24/20 05:33 Hct 40.8 % (42.0-54.0) L 02/24/20 05:33 MCV 88.3 fL (80.0-100.0) 02/24/20 05:33 MCH 29.7 pg (27.0-34.0) 02/24/20 05:33 MCHC 33.7 g/dL (33.0-35.0) 02/24/20 05:33 RDW 15.0 % (11.6-16.5) 02/24/20 05:33 Plt Count 308 X10^3/uL (150.0-450.0) 02/24/20 05:33 MPV 9.0 fL (7.4-11.0) 02/24/20 05:33 Neut % (Auto) 66.3 % (42.0-75.0) 02/24/20 05:33 Lymph % (Auto) 21.0 % (21.0-51.0) 02/24/20 05:33 [place] % (Auto) 11.7 % (0.0-13.0) 02/24/20 05:33 Eos % (Auto) 0.5 % (0.9-2.9) L 02/24/20 05:33 Baso % (Auto) 0.5 % (0.2-1.0) 02/24/20 05:33 Neut # (Auto) 5.1 x10^3/uL (2.2-4.8) H 02/24/20 05:33 Lymph # (Auto) 1.6 X10^3/uL (1.3-2.9) 02/24/20 05:33 [place] # (Auto) 0.9 x10^3/uL (0.3-0.8) H 02/24/20 05:33 Eos # (Auto) 0.0 x10^3/uL (0.0-0.2) 02/24/20 05:33 Baso # (Auto) 0.0 X10^3/uL (0.0-0.1) 02/24/20 05:33 Absolute Nucleated RBC 0.2 /100WBC 02/24/20 05:33 Sample Site Lr 02/22/20 23:05 ABG pH 7.550 (7.35-7.45) H 02/22/20 23:05 ABG pCO2 30.0 mmHg (35.0-45.0) L 02/22/20 23:05 ABG pO2 51.0 mmHg (80.0-100.0) L 02/22/20 23:05 ABG HCO3 26.2 mmol/L (22-26) H 02/22/20 23:05 ABG O2 Saturation 90.0 % (90-100) 02/22/20 23:05 ABG Base Excess 4.3 mmol/L (-2.0-2.0) H 02/22/20 23:05 Cristóbal Test Pos 02/22/20 23:05 A-a Gradient 61.0 mmHg 02/22/20 23:05 FiO2 21.0 02/22/20 23:05 Blood Gas Comments Jack well ae 02/22/20 23:05 Sodium 143 mmol/L (136-145) 02/24/20 05:33 Corrected Sodium 143 mmol/L (136-145) 02/24/20 05:33 Potassium 3.6 mmol/L (3.5-5.1) 02/24/20 05:33 Chloride 109 mmol/L (98-107) H 02/24/20 05:33 Carbon Dioxide 23.5 mmol/L (21-32) 02/24/20 05:33 BUN 23 mg/dL (7-18) H 02/24/20 05:33 Creatinine 1.27 mg/dL (0.70-1.30) 02/24/20 05:33 Est GFR (MDRD) Af Amer > 60 (>60) 02/24/20 05:33 Est GFR (MDRD) Non-Af 59 (>60) 02/24/20 05:33 Glucose 117 mg/dL (65-99) H 02/24/20 05:33 POC Glucose (mg/dL) 116 mg/dL (65-99) H 02/24/20 05:28 Calcium 8.5 mg/dL (8.5-10.1) 02/24/20 05:33 Corrected Calcium 9.9 mg/dL (8.5-10.1) 02/24/20 05:33 Magnesium 2.0 mg/dL (1.7-2.9) 02/23/20 05:53 Ferritin 1306 ng/mL (26-388) H 02/22/20 23:07 Total Bilirubin 0.50 mg/dL (0.2-1.0) 02/24/20 05:33 AST 82 Units/L (15-37) H 02/24/20 05:33 ALT 133 Units/L (12-78) H 02/24/20 05:33 Alkaline Phosphatase 55 Units/L (46-116) 02/24/20 05:33 C-Reactive Protein 122.90 mg/L (0-3.0) H 02/22/20 23:07 Total Protein 6.3 g/dL (6.4-8.2) L 02/24/20 05:33 Albumin 2.2 g/dL (3.4-5.0) L 02/24/20 05:33 Globulin 4.1 g/dL (2.5-4.5) 02/24/20 05:33 Albumin/Globulin Ratio 0.5 Ratio (1.1-2.1) L 02/24/20 05:33 SARS CoV-2 RNA Rapid ROSALIA Positive (NEGATIVE) A 02/23/20 01:14 Plan (1) Pneumonia due to 2019 novel coronavirus: Status: Acute (2) Acute respiratory failure with hypoxia: Status: Acute (3) Hypokalemia: Status: Acute (4) Diabetes: Status: Acute Qualifiers: Diabetes mellitus complication status: without complication Diabetes mellitus senior living insulin use: without senior living use Diabetes mellitus type: type 2 Qualified Code(s): E11.9 - Type 2 diabetes mellitus without complications (5) HTN (hypertension): Status: Acute Qualifiers: Hypertension type: essential hypertension Qualified Code(s): I10 - Essential (primary) hypertension (6) STELLA (acute kidney injury): Status: Acute (7) GERD (gastroesophageal reflux disease): Status: Acute Qualifiers: Esophagitis presence: without esophagitis Qualified Code(s): K21.9 - Gastro-esophageal reflux disease without esophagitis (8) HLD (hyperlipidemia): Status: Acute Qualifiers: Hyperlipidemia type: unspecified Qualified Code(s): E78.5 - Hyperlipidemia, unspecified
[2020-02-24] MEDS: PROVENTIL NEB TX 0.083% 2.5MG/ 3ML NEB SCH ×2 (11:17→20:15)
[2020-02-24] MEDS: PULMICORT NEB TX 0.5 MG NEB SCH ×2 (11:17→20:15)
[2020-02-24] MEDS: HumuLIN R SC PRN ×2 (17:10→22:55)
[2020-02-25] MEDS: NS 1000 ML 1,000 ML IV SCH (03:00)
[2020-02-25] MEDS: ASCORBIC ACID INJ MULTI-DOSE VIAL 1,500 MG in NS 100 ML IV 100 ML IV SCH ×2 (04:00→08:49)
--- NOTE | 2020-02-25 05:10 | RAD ---
PROCEDURE: Chest X-ray 1 View .HISTORY: COVID, HYPOXIA .TECHNIQUE: AP view .COMPARISON: 02/22/2020.TECHNICAL QUALITY: Satisfactory .FINDINGS:Unchanged prominent size heart and normal mediastinum.Improved consolidations/atelectasis lung bases with mild changes remaining present left base. No pleural fluid or pneumothorax.IMPRESSION:Continued left basilar pneumonia with improvement on the right.Electronically signed by: Malick Persaud (Feb 25, 2020 05:09:20)
[2020-02-25 07:03] LABS: BASOPHILS % (AUTO) 0.3 % (0.2-1.0); EOSINOPHILS % (AUTO) 0.1 % (0.9-2.9); HEMATOCRIT 40.5 % (42.0-54.0); HEMOGLOBIN 13.8 g/dL (13.5-18.0); LYMPHOCYTES # (AUTO) 0.8 X10^3/uL (1.3-2.9); LYMPHOCYTES % (AUTO) 12.5 % (21.0-51.0); MEAN CORPUSCULAR HEMOGLOBIN 30.1 pg (27.0-34.0); MEAN CORPUSCULAR HGB CONC 34.2 g/dL (33.0-35.0); MEAN CORPUSCULAR VOLUME 88.1 fL (80.0-100.0); MEAN PLATELET VOLUME 9.3 fL (7.4-11.0); MONOCYTES # (AUTO) 0.5 x10^3/uL (0.3-0.8); MONOCYTES % (AUTO) 7.7 % (0.0-13.0); NEUTROPHILS # (AUTO) 5.2 x10^3/uL (2.2-4.8); NEUTROPHILS % (AUTO) 79.4 % (42.0-75.0); PLATELET COUNT 359 X10^3/uL (150.0-450.0); RED CELL DISTRIBUTION WIDTH 14.5 % (11.6-16.5); WHITE BLOOD COUNT 6.5 X10^3/uL (3.6-10.0)
[2020-02-25 07:16] LABS: ALANINE AMINOTRANSFERASE 100 Units/L (12-78); ALBUMIN 2.2 g/dL (3.4-5.0); ALKALINE PHOSPHATASE 54 Units/L (46-116); ASPARTATE AMINO TRANSFERASE 36 Units/L (15-37); BLOOD UREA NITROGEN 21 mg/dL (7-18); CALCIUM 9.1 mg/dL (8.5-10.1); CARBON DIOXIDE 22.3 mmol/L (21-32); CHLORIDE 110 mmol/L (98-107); COR CA(FOR HYPOALB) 10.5 mg/dL (8.5-10.1); COR NA(FOR HYPERGLY) 143 mmol/L (136-145); CREATININE 1.24 mg/dL (0.70-1.30); SODIUM 142 mmol/L (136-145); TOTAL PROTEIN 6.3 g/dL (6.4-8.2); eGFR NON BLACK RACES > 60 (>60)
[2020-02-25] MEDS: DECADRON TAB PO SCH (08:49)
[2020-02-25] MEDS: K-DUR TAB 20 MEQ PO SCH (08:49)
[2020-02-25] MEDS: ASPIRIN 81 MG CHEWTAB PO SCH (08:49)
[2020-02-25] MEDS: ZINC SULFATE PO SCH (08:50)
[2020-02-25] MEDS: LIPITOR TAB 20 MG PO SCH (08:50)
[2020-02-25] MEDS: REMDESIVIR 100 MG in NS 250 ML IV 250 ML IV SCH (08:50)
[2020-02-25] MEDS: VITAMIN A PO SCH (08:50)
[2020-02-25] MEDS: PROTONIX TAB 40 MG PO SCH (08:50)
[2020-02-25] MEDS: THIAMINE HCL INJ IVP SCH (08:51)
[2020-02-25] MEDS: LOVENOX INJ 30 MG SYR SC SCH (08:51)
[2020-02-25] MEDS: VITAMIN D3 125 mcg (5,000 UNITS) PO SCH (08:52)
[2020-02-25] MEDS: ZITHROMAX TAB 250 MG PO SCH (08:52)
[2020-02-25] MEDS: PROVENTIL NEB TX 0.083% 2.5MG/ 3ML NEB SCH (09:37)
[2020-02-25] MEDS: PULMICORT NEB TX 0.5 MG NEB SCH (09:37)
--- NOTE | 2020-02-25 10:18 | W.DIS.FURT ---
Summary of Discharge Discharge Summary of Date Date of Exam: 02/25/20 Admission Date Date of Admission: 02/23/20 Admission Diagnosis Patient Problems (Updated 03/16/20 @ 16:30 by Meena Burroughs) Hypoxia (Acute) R09.02 Acute respiratory alkalosis (Acute) E87.3 Pneumonia due to 2019 novel coronavirus (Acute) U07.1, J12.82 Hospital Course: Mr. Naqvi is a 69y/o male with a PMH of HTN, HLD and DM presented with worsening dyspnea, cough and weakness. He states he has been sick for the past week. He got tested for covid at his PCP's office on but did not get the results back yet. He reports increased shortness of breath and cough. He also started having diarrhea last night. ED work-up, patient was COVID-19 positive. CXR: mild bibasilar patchy infiltrates, bilateral effusions noted. Patient's ABG on room air showed hypoxia. He was placed on 3L NC. He did have slight elevation of BUN and Creatinine. He was started on gentle hydration, IV antibiotics and remdesivir. He was also started on decadron and immune support as per COVID-19 protocol. Labs were monitored daily and electrolytes replaced as needed. Patient did well and was weaned off the O2. Patient was stable for discharge and did not require home oxygen. He will f/u with PCP as scheduled. Vital Signs: Vital Signs (72 hours) 02/22/20 22:11 02/23/20 02:30 02/23/20 04:00 Temperature 98.8 F 98 F Pulse Rate 96 H 89 Pulse Rate [Bilateral Radial] 70 Respiratory Rate 20 22 Blood Pressure 136/69 Blood Pressure [Right Arm] 139/70 O2 Sat by Pulse Oximetry 91 L 95 97 02/23/20 08:00 02/23/20 09:22 02/23/20 12:00 Temperature 97.9 F 98.4 F Pulse Rate 54 L Pulse Rate [Bilateral Radial] 77 75 Respiratory Rate 22 20 Blood Pressure Blood Pressure [Right Arm] 143/71 98/50 O2 Sat by Pulse Oximetry 94 L 97 94 L 02/23/20 14:23 02/23/20 15:23 02/23/20 16:00 Temperature 98.1 F Pulse Rate Pulse Rate [Bilateral Radial] 62 Respiratory Rate 20 20 20 Blood Pressure Blood Pressure [Right Arm] 125/64 O2 Sat by Pulse Oximetry 95 02/23/20 20:00 02/23/20 20:55 02/24/20 00:00 Temperature 97.5 F L 97.9 F Pulse Rate 62 Pulse Rate [Bilateral Radial] 58 L 68 Respiratory Rate 20 22 Blood Pressure Blood Pressure [Right Arm] 130/64 121/56 O2 Sat by Pulse Oximetry 97 96 96 02/24/20 04:00 02/24/20 08:00 02/24/20 12:00 Temperature 97.5 F L 99.0 F 99.0 F Pulse Rate Pulse Rate [Bilateral Radial] 70 71 53 L Respiratory Rate 20 20 20 Blood Pressure Blood Pressure [Right Arm] 124/82 118/66 118/60 O2 Sat by Pulse Oximetry 98 98 98 02/24/20 16:00 02/24/20 20:00 02/24/20 20:15 Temperature 97.9 F 97.7 F Pulse Rate 64 Pulse Rate [Bilateral Radial] 53 L 56 L Respiratory Rate 20 21 Blood Pressure Blood Pressure [Right Arm] 143/67 130/66 O2 Sat by Pulse Oximetry 98 98 94 L 02/25/20 00:00 02/25/20 04:00 02/25/20 08:00 Temperature 97.6 F 97.7 F 98.8 F Pulse Rate Pulse Rate [Bilateral Radial] 58 L 55 L 54 L Respiratory Rate 20 19 22 Blood Pressure Blood Pressure [Right Arm] 126/62 130/67 150/68 O2 Sat by Pulse Oximetry 96 97 99 Labs: Laboratory Last Values WBC 6.5 X10^3/uL (3.6-10.0) 02/25/20 05:36 RBC 4.60 X10^6/uL (4.7-6.0) L 02/25/20 05:36 Hgb 13.8 g/dL (13.5-18.0) 02/25/20 05:36 Hct 40.5 % (42.0-54.0) L 02/25/20 05:36 MCV 88.1 fL (80.0-100.0) 02/25/20 05:36 MCH 30.1 pg (27.0-34.0) 02/25/20 05:36 MCHC 34.2 g/dL (33.0-35.0) 02/25/20 05:36 RDW 14.5 % (11.6-16.5) 02/25/20 05:36 Plt Count 359 X10^3/uL (150.0-450.0) 02/25/20 05:36 MPV 9.3 fL (7.4-11.0) 02/25/20 05:36 Neut % (Auto) 79.4 % (42.0-75.0) H 02/25/20 05:36 Lymph % (Auto) 12.5 % (21.0-51.0) L 02/25/20 05:36 Anderson % (Auto) 7.7 % (0.0-13.0) 02/25/20 05:36 Eos % (Auto) 0.1 % (0.9-2.9) L 02/25/20 05:36 Baso % (Auto) 0.3 % (0.2-1.0) 02/25/20 05:36 Neut # (Auto) 5.2 x10^3/uL (2.2-4.8) H 02/25/20 05:36 Lymph # (Auto) 0.8 X10^3/uL (1.3-2.9) L 02/25/20 05:36 Anderson # (Auto) 0.5 x10^3/uL (0.3-0.8) 02/25/20 05:36 Eos # (Auto) 0.0 x10^3/uL (0.0-0.2) 02/25/20 05:36 Baso # (Auto) 0.0 X10^3/uL (0.0-0.1) 02/25/20 05:36 Absolute Nucleated RBC 0.0 /100WBC 02/25/20 05:36 Sample Site Lr 02/22/20 23:05 ABG pH 7.550 (7.35-7.45) H 02/22/20 23:05 ABG pCO2 30.0 mmHg (35.0-45.0) L 02/22/20 23:05 ABG pO2 51.0 mmHg (80.0-100.0) L 02/22/20 23:05 ABG HCO3 26.2 mmol/L (22-26) H 02/22/20 23:05 ABG O2 Saturation 90.0 % (90-100) 02/22/20 23:05 ABG Base Excess 4.3 mmol/L (-2.0-2.0) H 02/22/20 23:05 Cristóbal Test Pos 02/22/20 23:05 A-a Gradient 61.0 mmHg 02/22/20 23:05 FiO2 21.0 02/22/20 23:05 Blood Gas Comments Jack well ae 02/22/20 23:05 Sodium 142 mmol/L (136-145) 02/25/20 05:36 Corrected Sodium 143 mmol/L (136-145) 02/25/20 05:36 Potassium 4.2 mmol/L (3.5-5.1) 02/25/20 05:36 Chloride 110 mmol/L (98-107) H 02/25/20 05:36 Carbon Dioxide 22.3 mmol/L (21-32) 02/25/20 05:36 BUN 21 mg/dL (7-18) H 02/25/20 05:36 Creatinine 1.24 mg/dL (0.70-1.30) 02/25/20 05:36 Est GFR (MDRD) Af Amer > 60 (>60) 02/25/20 05:36 Est GFR (MDRD) Non-Af > 60 (>60) 02/25/20 05:36 Glucose 139 mg/dL (65-99) H 02/25/20 05:36 POC Glucose (mg/dL) 118 mg/dL (65-99) H 02/25/20 06:33 Calcium 9.1 mg/dL (8.5-10.1) 02/25/20 05:36 Corrected Calcium 10.5 mg/dL (8.5-10.1) H 02/25/20 05:36 Magnesium 2.0 mg/dL (1.7-2.9) 02/23/20 05:53 Ferritin 1306 ng/mL (26-388) H 02/22/20 23:07 Total Bilirubin 0.40 mg/dL (0.2-1.0) 02/25/20 05:36 AST 36 Units/L (15-37) 02/25/20 05:36 ALT 100 Units/L (12-78) H 02/25/20 05:36 Alkaline Phosphatase 54 Units/L (46-116) 02/25/20 05:36 C-Reactive Protein 51.30 mg/L (0-3.0) H 02/25/20 05:36 Total Protein 6.3 g/dL (6.4-8.2) L 02/25/20 05:36 Albumin 2.2 g/dL (3.4-5.0) L 02/25/20 05:36 Globulin 4.1 g/dL (2.5-4.5) 02/25/20 05:36 Albumin/Globulin Ratio 0.5 Ratio (1.1-2.1) L 02/25/20 05:36 SARS CoV-2 RNA Rapid ROSALIA Positive (NEGATIVE) A 02/23/20 01:14 Reason For Visit: COVID19, PNEUMONIA, HYPOXIA Discharge Date Discharge Date: 02/25/20 Discharge Diagnosis All Active Problems (Updated 03/16/20 @ 16:30 by Meena Burroughs) HLD (hyperlipidemia) (Chronic) GERD (gastroesophageal reflux disease) (Chronic) STELLA (acute kidney injury) (Acute) HTN (hypertension) (Chronic) Diabetes (Chronic) Hypokalemia (Acute) Acute respiratory failure with hypoxia (Acute) Hypoxia (Acute) Acute respiratory alkalosis (Acute) Pneumonia due to 2019 novel coronavirus (Acute) Plan of Treatment: Continue with present treatment and follow up plan. Pt is to keep follow up appointment as instructed and take medications as ordered. Discharge Medications Discharge Medications: No Known Drug Allergies Allergy (Verified 02/22/20 22:19) CONTINUE taking the following medications allopurinol 300 mg PO DAILY 02/23/20 [History] aspirin 81 mg PO DAILY 02/23/20 [History] atorvastatin [Lipitor] 20 mg PO DAILY 02/23/20 [History] fexofenadine 180 mg PO Q24H 02/23/20 [History] lisinopril-hydrochlorothiazide 1 tab PO DAILY 02/23/20 [History] meloxicam [Mobic] 15 mg PO DAILY PRN 02/23/20 [History] metformin 500 mg PO 1700 02/23/20 [History] pantoprazole [Protonix] 40 mg PO QAM 02/23/20 [History] tramadol 50 mg PO BID PRN 02/23/20 [History] New Prescriptions albuterol sulfate 2 puff INHALATION Q4-6H PRN #8.5 g 02/25/20 [Rx] azithromycin 250 mg PO DAILY 3 Days #3 tab 02/25/20 [Rx] benzonatate [Tessalon Perles] 100 mg PO BID-TID PRN #20 cap 02/25/20 [Rx] methylprednisolone See Rx Instructions .ROUTE .COMPLEX #21 ea 02/25/20 [Rx] Follow up and Referral Follow Up: 1 Week (PCP) Discharge Disposition Discharge Disposition: Home Discharge Condition: Stable Discharge Plan Discharge Plan Hospital Course: Mr. Naqvi is a 69y/o male with a PMH of HTN, HLD and DM presented with worsening dyspnea, cough and weakness. He states he has been sick for the past week. He got tested for covid at his PCP's office on but did not get the results back yet. He reports increased shortness of breath and cough. He also started having diarrhea last night. ED work-up, patient was COVID-19 positive. CXR: mild bibasilar patchy infiltrates, bilateral effusions noted. Patient's ABG on room air showed hypoxia. He was placed on 3L NC. He did have slight elevation of BUN and Creatinine. He was started on gentle hydration, IV antibiotics and remdesivir. He was also started on decadron and immune support as per COVID-19 protocol. Labs were monitored daily and electrolytes replaced as needed. Patient did well and was weaned off the O2. Patient was stable for discharge and did not require home oxygen. He will f/u with PCP as scheduled. Patient Disposition: HOME, SELF-CARE Condition: Stable Health Concerns: Post Hospitalization: new medications and changes needed to prevent readmission or further decline. Pt educated and given instructions on all concerns. Care Plan Goals: Problem: Respiratory Complications Goal: Improved Uncomplicated Respiratory Status Instructions: Follow provided instructions. Follow up with primary physician as directed. Contact primary care physician or report to the closest Emergency Room if condition worsens. Plan of Treatment: Continue with present treatment and follow up plan. Pt is to keep follow up appointment as instructed and take medications as ordered. Prescription drug monitoring program results: PDMP reviewed and no concerns identified Prescriptions: New methylprednisolone 4 mg tablets,dose pack See Rx Instructions .ROUTE .COMPLEX Qty: 21 RF: 0 albuterol sulfate 90 mcg/actuation HFA aerosol inhaler 2 puff inhalation Q4-6H PRNQty: 8.5 RF: 1 benzonatate [Tessalon Perles] 100 mg capsule 100 mg PO BID-TID PRN (Reason: cough) Qty: 20 RF: 0 Continued metformin 500 mg Tablet 500 mg PO 1700 RF: 0 atorvastatin [Lipitor] 20 mg Tablet 20 mg PO DAILY RF: 0 meloxicam [Mobic] 15 mg Tablet 15 mg PO DAILY PRNRF: 0 fexofenadine 180 mg Tablet 180 mg PO Q24H RF: 0 tramadol 50 mg Tablet 50 mg PO BID PRNRF: 0 pantoprazole [Protonix] 40 mg Tablet,Delayed Release (Dr/Ec) 40 mg PO QAM RF: 0 lisinopril-hydrochlorothiazide 20-25 mg Tablet 1 tab PO DAILY RF: 0 aspirin 81 mg Tablet,Chewable 81 mg PO DAILY RF: 0 allopurinol 300 mg Tablet 300 mg PO DAILY RF: 0 Follow ups/Referrals Follow ups/Referrals: SHATNI AHUJA [Primary Care Provider] - 03/03/20 10:00 am (hospital follow up after COVID pneumonia -) Instructions Instructions: Hypokalemia, Viral Respiratory Infection, [id number], Home Oxygen Use, Adult, Hand Washing, [id number], Hypoxia, Acute Kidney Injury, Adult, Droplet Precautions, [id number], Contact Precautions, [id number], Hypertension, [id number], Acute Respiratory Failure, Adult, Community-Acquired Pneumonia, Adult, [id number] Activity Restrictions/Additional Instructions: HOME O2 Stand Alone Forms: Excuse From Work or School, Precautions for COVID19, Patient Portal, Social Distancing
[2020-02-25] MEDS: HumuLIN R SC PRN (11:35)
[2020-02-25 14:22] VITALS: BP 154/71
== END 2020-02-25 13:50 | disposition home or self-care (01) | DRG 177 ==
LOC: ER 22:09 → OBS 02-23 02:19 → MED/SURG 02-23 18:15
PROVIDERS: ADMIT Family Medicine; ATTEND Family Medicine
DX: I10 Essential (primary) hypertension; R79.89 Other specified abnormal findings of blood chemistry; E11.65 Type 2 diabetes mellitus with hyperglycemia; R79.82 Elevated C-reactive protein (CRP); J96.01 Acute respiratory failure with hypoxia; E87.3 Alkalosis; N17.8 Other acute kidney failure; U07.1 COVID-19; E87.6 Hypokalemia; E78.2 Mixed hyperlipidemia; K21.9 Gastro-esophageal reflux disease without esophagitis; J12.81 Pneumonia due to SARS-associated coronavirus